=== PATIENT | female | born 1990 | race Caucasian/White ===

== ENCOUNTER → 2016-03-21 | Outpatient (CLI) | payer BC ==
[~2016-03-21] MED LIST: AFRINWC NAE; ALBUAER19 INH; MEDR150I IM; MOME50SP5 NAE; POLY335019 PO
== END | disposition home or self-care (01) ==
LOC: C.PAPS 15:43
PROVIDERS: ATTEND Obstetrics & Gynecology
DX: Z01.419 Encounter for gynecological examination (general) (routine) without abnormal findings (principal)

== ENCOUNTER → 2016-06-28 | Outpatient (CLI) | payer BC ==
[2016-06-28 12:49] LABS: THYROID STIMULATING HORMONE 3.39 uIu/ml (0.300-4.500)
[2016-06-30 07:24] LABS: MICROSOMAL AB 214 IU/ML (<9)
== END | disposition home or self-care (01) ==
LOC: C.LAB1850 09:30
PROVIDERS: ATTEND Physician Assistant
DX: R94.6 Abnormal results of thyroid function studies (principal)

== ENCOUNTER → 2016-08-24 | Outpatient (CLI) | payer BC ==
[2016-08-24 15:20] LABS: THYROID STIMULATING HORMONE 1.17 uIu/ml (0.300-4.500)
== END | disposition home or self-care (01) ==
LOC: C.LAB1850 12:47
PROVIDERS: ATTEND Physician Assistant
DX: R94.6 Abnormal results of thyroid function studies (principal)

== ENCOUNTER → 2016-08-25 | Outpatient (CLI) | payer BC ==
--- NOTE | 2016-08-25 09:34 | DIAGNOSTIC IMAGING REPORT ---
(BARIUM SWALLOW) ESOPHAGUS CLINICAL HISTORY: DYSPHAGIA COMPARISON STUDY: None FLUOROSCOPY TIME: 0.9 minutes. 22 fluoroscopic spot images were acquired.. FINDINGS: The patient swallowed effervescent granules and barium without difficulty. Rapid sequence swallows in the AP and lateral projections were normal. No esophageal masses or ulcerations are visualized. No esophageal strictures are evident. There was gastroesophageal reflux. The patient swallowed one half inch barium tablet. This freely passed into the stomach. IMPRESSION: Gastroesophageal reflux. Otherwise normal study Electronically signed by: Darwin Hill M.D. 08/25/2016 9:33 AM Dictated Date/Time: 08/25/2016 9:31 AM
== END | disposition home or self-care (01) ==
LOC: C.RAD 08:56
PROVIDERS: ATTEND Internal Medicine Gastroenterology
DX: R13.10 Dysphagia, unspecified (principal); K21.9 Gastro-esophageal reflux disease without esophagitis